=== PATIENT | male | born 1990 | race Caucasian/White ===

== ENCOUNTER 2020-07-15 16:42 | Emergency (ER) | payer OTHER ==
[~2020-07-15] VITALS: Ht 180.3 cm; Wt 86.2 kg
[2020-07-15] MEDS ORDERED: AMPH30CA3 PO (17:03)
[2020-07-15] MEDS ORDERED: OLANZAPINE 5 MG TABLET PO ONE (17:15)
[2020-07-15] MEDS ORDERED: OLANZAPINE 5 MG TABLET ONE (17:18)
[2020-07-15] MEDS ORDERED: LORAZEPAM 1 MG TABLET ONE (17:27)
[2020-07-15] MEDS: LORAZEPAM 0.5 MG TABLET PO ONE ×3 (17:30→18:00)
--- NOTE | 2020-07-15 17:40 | NUR ---
PT WALKING AROUND, ACTING BIZZARRE, TALKING ABOUT HER MOM, TRYING TO REACH INTO PTS ROOM, ESCALATING,
--- NOTE | 2020-07-15 17:50 | NUR ---
Pt was in the hallway, agitated, lying on the floor and hitting himself. [facility]ami sal[facility] was called, pt ambulated back to room 4b with steady gait. Pt took Ativan po as ordered, security at bedside for safety at this time.
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
[2020-07-15] MEDS ORDERED: HALOPERIDOL LACTATE 5 MG/1 ML VIAL ONE (18:09)
[2020-07-15] MEDS ORDERED: LORAZEPAM 2 MG/1 ML VIAL ONE (18:10)
[2020-07-15] MEDS ORDERED: HALOPERIDOL LACTATE 5 MG/1 ML VIAL IM ONE (18:15)
[2020-07-15] MEDS ORDERED: diphenhydrAMINE 50 MG/1 ML VIAL IM ONE (18:15)
[2020-07-15] MEDS ORDERED: LORAZEPAM 2 MG/1 ML VIAL IM ONE (18:15)
--- NOTE | 2020-07-15 18:15 | NUR ---
PT PLACED ON RESTRAINT WITH THE HELP OF SECURITY. PT VERY COMBATIVE.
[2020-07-15] MEDS ORDERED: diphenhydrAMINE 50 MG/1 ML VIAL ONE (18:16)
[2020-07-15] MEDS ORDERED: NEOMY/BACITRA/POLYMYXIN B OINT UD PACKET TP ONE (18:26)
--- NOTE | 2020-07-15 19:45 | NUR ---
Patient is not currently alert and still somewhat combative in restraints and unable to produce a urine sample. Urine sample was obtained using a straight catheter which patient tolerated well and 800mL uring produced. No signs of bleeding or tramautic insertion.
[2020-07-15 19:46] LABS: BASOPHILS % (AUTO) 0.5 % (0.0-2.0); EOSINOPHILS # (AUTO) 0.1 K/uL (0.0-0.7); EOSINOPHILS % (AUTO) 1.8 % (0.0-7.0); HEMATOCRIT 43.8 % (36.7-47.1); HEMOGLOBIN 15.1 g/dL (12.5-16.3); LYMPHOCYTES # (AUTO) 1.4 K/uL (20.0-40.0); LYMPHOCYTES % (AUTO) 22.6 % (20.5-51.5); MEAN CORPUSCULAR HEMOGLOBIN 30.3 uug (23.8-33.4); MEAN CORPUSCULAR HGB CONC 35 g/dL (32.5-36.3); MEAN CORPUSCULAR VOLUME 87.6 fL (73.0-96.2); MONOCYTES # (AUTO) 0.7 K/uL (2.0-10.0); MONOCYTES % (AUTO) 11.3 % (0.0-11.0); NEUTROPHILS # (AUTO) 3.9 K/uL (1.8-8.9); NEUTROPHILS % (AUTO) 63.8 % (38.5-71.5); PLATELET COUNT (AUTO) 222 K/uL (152-348); WHITE BLOOD COUNT (AUTO) 6.1 K/uL (3.6-10.2)
[2020-07-15 19:49] LABS: CARBON DIOXIDE 28 mmol/L (21-32); CHLORIDE 101 mmol/L (98-107); CREATININE 0.9 mg/dL (0.6-1.3); GLUCOSE 105 mg/dL (74-106); POTASSIUM 3.5 mmol/L (3.5-5.1); UREA NITROGEN, BLOOD 13 mg/dL (7-18)
[2020-07-15 19:53] LABS: ETHANOL < 3 MG/DL (0-0)
[2020-07-15 19:54] LABS: ALANINE AMINOTRANSFERASE 38 U/L (16-63); ALKALINE PHOSPHATASE 80 U/L (50-136); ASPARTATE AMINOTRANSFERASE 39 U/L (15-37); BILIRUBIN,DIRECT 0.4 mg/dL (0.0-0.2); BILIRUBIN,TOTAL 2.7 mg/dL (0.2-1.0); TOTAL PROTEIN, SERUM 6.4 g/dL (6.4-8.2)
[2020-07-15 19:55] LABS: ACETAMINOPHEN < 2.0 ug/mL (10-30)
[2020-07-15 20:31] LABS: *BILIRUBIN,URIN NEGATIVE (NEGATIVE); *BLOOD, URINE NEGATIVE (NEGATIVE); *CLARITY,URINE CLEAR (CLEAR); *COLOR,URINE YELLOW (YELLOW); *KETONES,URINE NEGATIVE (NEGATIVE); *UROBILINOGEN,URINE 0.2 E.U./dl (NORMAL); LEUKOCYTE ESTERASE ,URINE NEGATIVE (NEGATIVE); NITRITE, URINE NEGATIVE (NEGATIVE); UGLUCOSE NEGATIVE (NEGATIVE)
[2020-07-15 20:50] LABS: *AMPHETAMINE, URINE POSITIVE (NEGATIVE); *CANNABINOID, URINE NEGATIVE (NEGATIVE); *COCCAINE, URINE NEGATIVE (NEGATIVE); *OPIATE, URINE NEGATIVE (NEGATIVE); *PHENCYCLIDINE SCREEN,URINE NEGATIVE (NEGATIVE)
--- NOTE | 2020-07-15 21:00 | NUR ---
The patient semes to be calming down somewhat. I am releasing the restraints on limb at a time to give him a rest from the restraints. At this time I release his right arm. Perfusion good in all extremities.
--- NOTE | 2020-07-15 22:00 | NUR ---
Patient is much more calm. Removed the left wrist restraint. Both arms are now free of restraint.
--- NOTE | 2020-07-16 06:45 | NUR ---
Patient woke up and is very calm and cooperative. Leg restraints removed. Patient is now free from all restraints.
--- NOTE | 2020-07-16 07:05 | NUR ---
Hand off report givent to day shift nurse. Patient is now off restraints and still resting comfortably. Patient is stable and now coherent and cooperative with care. Patient is not exhibiting any SOB or signs of distress. Message left with Case Management to come evaluate this gentleman so he can be cleared for discharge.
--- NOTE | 2020-07-16 07:18 | NUR ---
1st contact with patient, asleep, easily arousable, moves all extremities, skin warm & dry, for social services designee to evaluate this morning then maybe discharge back to his home/sober living home.
--- NOTE | 2020-07-16 08:49 | NUR ---
received call from RENATO Simon. per RENATO, she has a meeting from 9-10am and then she will come after to see pt. Dr. Lewis made aware. pt currently sleeping in the room.
--- NOTE | 2020-07-16 10:17 | NUR ---
structural steel worker helper [email or web address].
--- NOTE | 2020-07-16 10:48 | NUR ---
Patient ambulated to bathroom with steady gait, calm & cooperative.
--- NOTE | 2020-07-16 10:56 | NUR ---
Food provided and patient ate with good appetite.
--- NOTE | 2020-07-16 10:58 | NUR ---
Patient discharged to home in stable condition with brisk steady gait. Written and verbal after care instructions given. Patient verbalizes understanding & compliance of instructions. Stressed follow up with his primary doctor or return to ER for worsening s/s.
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
[2020-07-19] MEDS ORDERED: LORAZEPAM 0.5 MG TABLET PO ONE (07:15)
== END 2020-07-16 10:55 | disposition home or self-care (01) ==
LOC: ER 16:44
DX: F15.151 Other stimulant abuse with stimulant-induced psychotic disorder with hallucinations (principal); F90.9 Attention-deficit hyperactivity disorder, unspecified type
CPT/HCPCS: 36415; 85025; A4663; C1758; G0480; J1200; J1630; J2060